=== PATIENT | female | born 1950 | race Caucasian/White ===

== ENCOUNTER 2023-08-15 09:33 | Outpatient (CLI) | payer MEDICARE, MEDICAID, SELFPAY ==
--- NOTE | ~2023-08-15 | CT_ITS ---
Clinical Indication: Chronic cough CT Scan of the Neck and Chest with Contrast: Technique: Contiguous sections were acquired throughout the neck and chest after intravenous administ ration of 75 cc of Omnipaque 350. Dose reduction technique was used on this scan by utilizing automat ed exposure control and iterative reconstruction technique. The dose-length product (DLP) was 796.48 mGy-cm. Findings: No lymphadenopathy or other abnormal mass lesion seen in the neck. No abnormal fluid collec tion seen. Parotid and submandibular glands are unremarkable. Parapharyngeal fat preserved bilaterall y. Visualized aerodigestive tract is grossly unremarkable. No endotracheal lesion identified. Thyroid gland unremarkable. 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 There is no evidence of any significant mediastinal, hilar or axillary lymphadenopathy. Mediastinal s oft tissues and vascular structures appear unremarkable. Cardiomegaly noted. There is no evidence of pleural or pericardial effusion. There is patchy airspace opacity in the medial right lower lobe and infrahilar region. There is a foc al irregular groundglass opacity in the right upper lobe (axial image 47 for example). Several subcen timeter tiny pulmonary nodules are noted in the right lung apex. There is probable mild left basilar atelectatic change. Images through the upper abdomen reveal minimal intrahepatic biliary dilatation. Impression: Patchy airspace opacity in the the medial right lower lobe, with additional focal ground glass opacit ies in the right upper lobe. Findings could reflect pneumonia versus possibly hypoventilatory/atelect atic change. Correlate clinically. Consider follow-up exam after interval therapy. Subcentimeter right apical pulmonary nodules. According to Fleischner Society criteria, for a low-ris k patient, no further follow-up required. For a high-risk patient, consider 12 month follow-up CT. No significant abnormality seen in the neck. Minimal intrahepatic biliary dilatation. This could possibly related to prior cholecystectomy. Correl ate clinically and with LFTs. Reviewed, dictated and finalized at [facility]. Impression: Patchy airspace opacity in the the medial right lower lobe, with additional foc al ground glass opacities in the right upper lobe. Findings could reflect pneum onia versus possibly hypoventilatory/atelectatic change. Correlate clinically. Consider follow-up exam after interval therapy. Subcentimeter right apical pulmonary nodules. According to Fleischner Society c [place], for a low-risk patient, no further follow-up required. For a high-risk patient, consider 12 month follow-up CT. No significant abnormality seen in the neck. Minimal intrahepatic biliary dilatation. This could possibly related to prior c holecystectomy. Correlate clinically and with LFTs.
[2023-08-15 10:09] LABS: Estimated Glomerular Filt Rate 55
== END 2023-08-15 09:34 | disposition home or self-care (01) ==
PROVIDERS: Visit Provider Internal Medicine Pulmonary Disease
DX: R05.3 Chronic cough (principal); R91.8 Other nonspecific abnormal finding of lung field
CPT/HCPCS: 70491; 71260; Q9967